=== PATIENT | male | born 1990 | race Caucasian/White ===

== ENCOUNTER 2016-03-11 14:27 | Emergency (ER) | payer OTHER ==
--- NOTE | 2016-03-11 15:57 | DIAGNOSTIC IMAGING REPORT ---
PROCEDURE: XR CHEST 2 VIEW INDICATION: SHORTNESS OF BREATH TECHNIQUE: PA and lateral views. COMPARISON: None. FINDINGS: Lungs are clear. Heart and mediastinum are normal. Thorax is normal. IMPRESSION: 1. Negative chest.
--- NOTE | 2016-03-11 16:15 | ED ORDER SUMMARY ---
..... Patient: JOE CASAS OrderSheet [facility] VisitID: [id number] [address] [place] [address] 25y, M Registration Date/Time: 03/11/2016 ORDER SHEET Weight: 77.1 kg Allergies: Codeine, Keflex, Triple antibiotic ointment GENERAL ORDERS: Chest 2V Urgent (15:02 03/11/2016 HBivens A.R.N.P.) (Ack 15:03 LNations ER Tech1) (15:10 LNations ER Tech1) MEDICATION ORDERS: Albuterol Neb w Atrovent 1 unit dose (NOW) (15:02 03/11/2016 HBivens A.R.N.P.) (15:56 RMcCarson) IV FLUIDS: ORDER SHEET NOTES: [Electronically signed by Maggy Pak R.N. (16:40 03/11/2016)] [Electronically signed by Indiana Guzman.R.N.P. (20:21 03/11/2016)] [Electronically locked/signed by Maggy Pak R.N. (16:40 03/11/2016)]
--- NOTE | 2016-03-11 16:15 | ED NURSING NOTES ---
Clinical Report - Nurses [facility] [address] [place] [address] 03/11/2016 14:30 Patient: JOE CASAS TRIAGE Triage time 14:42 Mar 11 2016. Acuity: LEVEL 3. 14:42 03/11/16. TENNILLE COMA SCORE: Hawkeye Coma Scale: 15- eyes open spontaneously (4); best verbal response- oriented x 4 (5); best motor response- obeys commands (6). --14:49 Maggy Pak R.N. 14:42 03/11/16. BP: 152/85. HR: 62. RR: 18. O2 saturation: 99%. Temp: 97.9 F. Pain level now: 0/10. --14:49 Maggy Pak R.N. Chief Complaint: (short of breath). --16:39 Maggy Pak R.N. Weight: 77.1 kg. Height/Length: 67 inches. BMI: 26.6. --14:42 Maggy Pka R.N. Medications Singulair Oral. --14:44 Maggy Pak R.N. Advair Diskus Inhalation. --14:44 Maggy Pak R.N. Albuterol Sulfate HFA Inhalation. --14:44 Maggy Pak R.N. Medication/allergy information source: the patient. --14:49 Maggy Pak R.N. Allergies Codeine. --14:45 Maggy Pak R.N. Keflex. --14:45 Maggy Pak R.N. Triple antibiotic ointment. --14:45 Maggy Pak R.N. History Arrived by private vehicle, and accompanied by family. This is a new problem. (7 days). ( feels tight, hurts to take in breath and exhaling. Cough started yesterday, productive for clear sputum.). He has had a cough and difficulty breathing. Treatment BACK LINE COOK: None. PAST MEDICAL HX: Has not received seasonal influenza immunization. SOCIAL HX: Never smoker. Occasional alcohol use. No drug use. No infectious disease exposure. ABUSE ASSESSMENT: No report of abuse. SELF HARM ASSESSMENT: A self harm assessment was performed. The patient answered "no" to the question "Have you recently felt down, depressed, or hopeless?", "Have you noticed less interest or pleasure in doing things?", "Do you have thoughts of harming or killing yourself?", "Are you here because you tried to hurt yourself?", "Have you ever tried to hurt yourself before today?", "Have you recently had thoughts about harming or killing others?" and "Do you have any dangerous items in your possession?". FALL RISK ASSESSMENT: Fall risk assessment completed. No fall risk identified. NUTRITIONAL RISK ASSESSMENT: The nutritional risk assessment revealed no deficiencies. FUNCTIONAL ASSESSMENT: Functional assessment: no impairments noted. LEARNING NEEDS ASSESSMENT: The learning needs assessment revealed no barriers. SKIN INTEGRITY ASSESSMENT: Skin integrity risk assessment completed. No skin integrity risk identified. --14:49 Maggy Pak R.N. PROBLEMS: Asthma. --14:45 Maggy Pak R.N. ADDITIONAL SURGERIES: Acl repair. Hypospadias Repair. --14:45 Maggy Pak R.N. Interventions ID band on patient. --14:49 Maggy Pak R.N. PHYSICAL ASSESSMENT Ambulatory to room. GENERAL / NEURO / PSYCH: Alert. Oriented X 4. Appears in no acute distress. HEENT: Pupils equal, round and reactive to light. Mucous membranes are pink. RESPIRATORY: Respirations not labored. Chest nontender. Breath sounds within normal limits. CVS: Pulses within normal limits. SKIN: Skin intact. Skin is warm and dry. --14:53 Maggy Pak R.N. NURSING PROGRESS NOTES 14:42 03/11/16. The initial plan of care for this patient includes an assessment with efforts to address impairment of the respiratory system. This plan of care was discussed with the patient. Pulse oximeter placed on patient; monitor alarms on. Two patient identifiers checked. Call light placed in reach. Bed placed in lowest position. Brakes of bed on. Patient ready for evaluation. --14:53 Maggy Pak R.N. 15:01 03/11/16. ( Peak flow 400,350,320). --15:01 Maggy Pak R.N. 15:56 03/11/2016 ALBUTEROL NEB W ATROVENT Neb TX Nebulizer 1 unit dose given. --15:56 Olive Turner 15:57 03/11/16. ( RT HERE TO GIVE TREATMENT). --15:57 Maggy Pak R.N. DISPOSITION / DISCHARGE 16:29 03/11/16. Departure time: 16:Mar 11 2016. Condition at departure: improved and stable. The goals identified in the patient's plan of care were met. No learning barriers present. Reviewed medication(s) side effects, precautions, dosing and course information. Prescription(s) given to the patient. The patient was discharged home and accompanied by family. He left the Emergency Department ambulatory and via private vehicle. Family member driving. --16:37 Maggy Pak R.N. 16:26 03/11/16. BP: 119/68. HR: 68. RR: 18. O2 saturation: 100%. Temp: 98 F. Pain level now: 0/10. --16:37 Maggy Pak R.N. Locked/Released at 03/11/2016 16:40 by Maggy Pak R.N.
--- NOTE | 2016-03-11 16:15 | ED ORDER SUMMARY ---
..... Patient: JOE CASAS OrderSheet [facility] VisitID: [id number] [address] [place] [address] 25y, M Registration Date/Time: 03/11/2016 ORDER SHEET Weight: 77.1 kg Allergies: Codeine, Keflex, Triple antibiotic ointment GENERAL ORDERS: Chest 2V Urgent (15:02 03/11/2016 HBivens A.R.N.P.) (Ack 15:03 LNations ER Tech1) (15:10 LNations ER Tech1) MEDICATION ORDERS: Albuterol Neb w Atrovent 1 unit dose (NOW) (15:02 03/11/2016 HBivens A.R.N.P.) (15:56 RMcCarson) IV FLUIDS: ORDER SHEET NOTES: [Electronically signed by Maggy Pak R.N. (16:40 03/11/2016)] [Electronically signed by Indiana Guzman.R.N.P. (20:21 03/11/2016)] [Electronically locked/signed by Maggy Pak R.N. (16:40 03/11/2016)]
--- NOTE | 2016-03-11 16:15 | ED CLINICAL REPORT ---
Clinical Report - Physicians/Mid Levels [facility] [address] [place] [address] 03/11/2016 14:30 Patient: JOE CASAS Time Seen: 14:52; initial patient contact, initial documentation, patient care assumed. Arrived- By private vehicle. Historian- patient. HISTORY OF PRESENT ILLNESS Chief Complaint: COUGH. This started about 1 weeks ago and is still present. The illness is described as moderate. The patient has had a cough and difficulty breathing. He has had scant amounts of clear sputum. No chest discomfort or pain, fever, muscle aches or sore throat. No nasal congestion or discharge, sinus pressure, sinus drainage or ear pain. (last used inhaler yesterday). Additional history - The patient has had contact with a sick friend and coworker. No recent travel. Similar symptoms previously: Frequently, as bad. ( says every year about this same time he gets bronchitis). Recent medical care: Not recently seen/assessed. REVIEW OF SYSTEMS No headache. All systems otherwise negative, except as recorded above. PAST HISTORY See nurses notes. PROBLEMS: Asthma. --14:45 Maggy Pak R.N. ADDITIONAL SURGERIES: Acl repair. Hypospadias Repair. --14:45 Maggy Pak R.N. SOCIAL HISTORY Never smoker. Occasional alcohol use. Not exposed to second-hand smoke at home. No drug use. No recent travel. Is a local resident. FAMILY HISTORY Negative. ADDITIONAL NOTES The nursing notes have been reviewed with agreement regarding the chief complaint, HPI, ROS, PMH and patient medications and allergies. PHYSICAL EXAM Vital Signs: 03/11/2016 14:42 BP: 152/85. HR: 62. RR: 18. O2 saturation: 99%. Temp: 97.9 F. Pain level now: 0/10. Have been reviewed as normal and appear to be correct. Appearance: Alert. No acute distress. Eyes: Pupils equal, round and reactive to light. Eyes normal inspection. ENT: Ears normal. Nose normal. Pharynx normal. Uvula midline. Neck: Normal inspection. Neck supple. CVS: Normal heart rate and rhythm. Heart sounds normal. Pulses normal. Respiratory: No respiratory distress. Breath sounds normal. Abdomen: Soft and nontender. No organomegaly. Back: Normal inspection. Skin: Skin warm and dry. Normal skin color. No rash. Normal skin turgor. Extremities: Extremities exhibit normal ROM. No lower extremity edema. Neuro: Oriented X 3. No motor deficit. No sensory deficit. LABS, X-RAYS, AND EKG Chest X-ray: Normal Chest X-Ray. (IMPRESSION: 1. Negative chest. Electronically Final signed by:Binh Dewey MD 03/11/2016 4:00:56 PM). The X-rays were interpreted by the radiologist and contemporaneously by me. PROGRESS AND PROCEDURES Course of Care: 1605. Resp even and unlabored, B breath sounds CTA, pt stated he felt much better. Patient counseled in person regarding the patient's stable condition, test results and diagnosis. 16:05. Differential Diagnosis: Other possible considerations: asthma, bronchitis, pneumonia, uri, flu. Above considerations are based on history and physical exam. Differential diagnosis was discussed with patient. Disposition: Discharged home in good and improved condition (16:15). Condition: good and stable. CLINICAL IMPRESSION Mild persistent and exercise induced asthma. No acute exacerbation, status asthmaticus, pneumonia, hypoxemia or acute respiratory failure. INSTRUCTIONS Do not work today, tomorrow. Warnings: GENERAL WARNINGS: Return or contact your physician immediately if your condition worsens or changes unexpectedly, if not improving as expected, or if other problems arise. Specifically return if problem worsens. Prescription Medications: Albuterol 0.083% Inhalation Solution: inhale 1 unit dose (3 mL) via nebulizer every 6 hours as needed for breathing problems. Dispense twenty-five (25) units. No refills. Prednisone 20 mg: take 3 orally every day for 5 days. Dispense fifteen (15). No refills. Follow-up: Follow up with your doctor in about three days as needed. Call for an appointment. Summary of care provided to patient. Understanding of the discharge instructions verbalized by patient. (Electronically signed by Indiana Guzman, A.R.N.P. 03/11/2016 20:21)
--- NOTE | 2016-03-11 20:22 | ED MAR SUMMARY ---
..... Medication Administration Record [facility] [address] [place] [address] Patient: JOE CASAS Visit ID: [id number] 25y, M Weight: 77.1 kg Height/Length: 67 in BMI: 26.6 ALLERGIES: Triple antibiotic ointment, Keflex, Codeine Given 15:56 03/11/2016 Olive Turner, Medication Administered: ALBUTEROL NEB W ATROVENT, Dose: 1 unit dose Nebulizer Neb TX. Medication Ordered: Albuterol Neb w Atrovent 1 unit dose (NOW).
--- NOTE | 2016-03-11 20:22 | ED MED RECONCILIATION SUMMARY ---
Patient: JOE CASAS Medication Reconciliation Report [facility] VisitID: [id number] [address] [place] [address] 25y, M Registration Date/Time: 03/11/2016 Weight: 77.1 kg Height/Length: 67 in. BMI: 26.6 ALLERGIES: Codeine, Keflex, Triple antibiotic ointment The patient's Home Medications are listed below: THE FOLLOWING MEDICATIONS NEED TO BE RECONCILED: Advair Diskus Inhalation Albuterol Sulfate HFA Inhalation Singulair Oral The source(s) of the original Home Medication information: patient The following Medications were given to the patient in the Emergency Department: ALBUTEROL NEB W ATROVENT Neb TX 1 unit dose, administered: 03/11/2016 3:56:00 PM The following Medications were prescribed to the patient: Albuterol 0.083% Inhalation Solution: inhale 1 unit dose (3 mL) via nebulizer every 6 hours as needed for breathing problems. Dispense twenty-five (25) units. No refills. -- Indiana Guzman, A.R.N.P. Prednisone 20 mg: take 3 orally every day for 5 days. Dispense fifteen (15). No refills. -- Indiana Guzman A.R.N.P.
--- NOTE | 2016-03-11 20:22 | ED MAR SUMMARY ---
..... Medication Administration Record [facility] [address] [place] [address] Patient: JOE CASAS Visit ID: [id number] 25y, M Weight: 77.1 kg Height/Length: 67 in BMI: 26.6 ALLERGIES: Triple antibiotic ointment, Keflex, Codeine Given 15:56 03/11/2016 Olive Turner, Medication Administered: ALBUTEROL NEB W ATROVENT, Dose: 1 unit dose Nebulizer Neb TX. Medication Ordered: Albuterol Neb w Atrovent 1 unit dose (NOW).
--- NOTE | 2016-03-11 20:22 | ED MED RECONCILIATION SUMMARY ---
Patient: JOE CASAS Medication Reconciliation Report [facility] VisitID: [id number] [address] [place] [address] 25y, M Registration Date/Time: 03/11/2016 Weight: 77.1 kg Height/Length: 67 in. BMI: 26.6 ALLERGIES: Codeine, Keflex, Triple antibiotic ointment The patient's Home Medications are listed below: THE FOLLOWING MEDICATIONS NEED TO BE RECONCILED: Advair Diskus Inhalation Albuterol Sulfate HFA Inhalation Singulair Oral The source(s) of the original Home Medication information: patient The following Medications were given to the patient in the Emergency Department: ALBUTEROL NEB W ATROVENT Neb TX 1 unit dose, administered: 03/11/2016 3:56:00 PM The following Medications were prescribed to the patient: Albuterol 0.083% Inhalation Solution: inhale 1 unit dose (3 mL) via nebulizer every 6 hours as needed for breathing problems. Dispense twenty-five (25) units. No refills. -- Indiana Guzman, A.R.N.P. Prednisone 20 mg: take 3 orally every day for 5 days. Dispense fifteen (15). No refills. -- Indiana Guzman A.R.N.P.
--- NOTE | 2016-03-11 20:22 | ED DISCHARGE INSTRUCTIONS ---
Patient: JOE CASAS General Instructions [facility] VisitID: [id number] [place] [address] 25y, M Registration Date/Time: 03/11/2016 Mild persistent and exercise induced asthma. No acute exacerbation, status asthmaticus, pneumonia, hypoxemia or acute respiratory failure. INSTRUCTIONS Do not work today, tomorrow. Warnings: GENERAL WARNINGS: Return or contact your physician immediately if your condition worsens or changes unexpectedly, if not improving as expected, or if other problems arise. Specifically return if problem worsens. Prescription Medications: Albuterol 0.083% Inhalation Solution: inhale 1 unit dose (3 mL) via nebulizer every 6 hours as needed for breathing problems. Dispense twenty-five (25) units. No refills. Prednisone 20 mg: take 3 orally every day for 5 days. Dispense fifteen (15). No refills. Follow-up: Follow up with your doctor in about three days as needed. Call for an appointment. Summary of care provided to patient. Understanding of the discharge instructions verbalized by patient. ADDITIONAL INFORMATION Asthma [Adult] Asthma is a disease where the small air passages within the lung go into spasm and restrict the flow of air. Inflammation and swelling of the airways cause further restriction. During an acute asthma attack, these factors cause difficulty breathing, wheezing, cough and chest tightness. An asthma attack can be triggered by many things. Common triggers include the common cold, bronchitis, pneumonia, irritants such as smoke or pullutants in the air, emotional upset and heavy exercise. Inmany adults with asthma, allergies todust, mold, pollen and animal dander can cause an asthma attack. Skipping doses of daily asthma medicine can also bring on an asthma attack. Asthma can be controlled with proper medicines and decreased exposure to known allergens. Home Care: Take prescribed medicine exactly at the times advised. If you have a hand-held inhaler or aerosol breathing medicine, do not use it more than once every four hours, unless told to do so. (If you need this medicine more than every four hours, you may need to return to the Emergency Room.) If prescribed an antibiotic or prednisone, take all of the medicine even if you are feeling better after a few days. Do not smoke. Avoid being exposed to the smoke of others. Some persons with asthma have worsening of their symptoms when they take aspirin and non-steroidal medicines like ibuprofen (Motrin, Advil) and naproxen (Aleve, Naprosyn). Talk to your doctor if you think this may apply to you. Acetaminophen (Tylenol)should be safe to use. Follow Up with your doctor, or as advised by our staff. Always bring all of your current medicines with you for your doctor to see. If you do not already have one, talk to your doctor about developing a personalized "Asthma Action Plan." [NOTE: A pneumococcal vaccine and yearly flu shot (every fall) are recommended. Ask your doctor about this.] Get Prompt Medical Attention if any of the following occur: Increased wheezing or shortness of breath Need to use your inhalers more often than usual without relief Fever of 100.4F (38C) or higher, or as directed by your healthcare provider Coughing up lots of dark-colored or bloody sputum (mucus) Chest pain with each breath You do not start to improve within 24 hours Call 911 If Any Of The Following Occur : Trouble walking or talking because of shortness of breath If you use a peak flow meter andyou are still in the red zone (less than 50 percent) 15 minutes after using inhaler medication Lips or fingernails turning ruelas or blue Albuterol Sulfate Nebulizer solution What is this medicine? ALBUTEROL (al BYOO ter ole) is a bronchodilator. It helps to open up the airways in your lungs to make it easier to breathe. This medicine is used to treat and to prevent bronchospasm. How should I use this medicine? This medicine is used in a nebulizer. Nebulizers make a liquid into an aerosol that you breathe in through your mouth or your mouth and nose into your lungs. You will be taught how to use your nebulizer. Follow the directions on your prescription label. Take your medicine at regular intervals. Do not use more often than directed. Talk to your histologic technician regarding the use of this medicine in children. Special care may be needed. What side effects may I notice from receiving this medicine? Side effects that you should report to your doctor or health rn critical care as soon as possible: allergic reactions like skin rash, itching or hives, swelling of the face, lips, or tongue breathing problems chest pain feeling faint or lightheaded, falls high blood pressure irregular heartbeat fever muscle cramps or weakness pain, tingling, numbness in the hands or feet vomiting Side effects that usually do not require medical attention (report to your doctor or health rn critical care if they continue or are bothersome): cough difficulty sleeping headache nervousness, trembling stomach upset stuffy or runny nose throat irritation unusual taste What may interact with this medicine? anti-infectives like chloroquine and pentamidine caffeine cisapride diuretics medicines for colds medicines for depression or emotional or psychotic conditions medicines for weight loss including some herbal products methadone some antibiotics like clarithromycin, erythromycin, levofloxacin, and linezolid some heart medicines steroid hormones like dexamethasone, cortisone, hydrocortisone theophylline thyroid hormones What if I miss a dose? If you miss a dose, use it as soon as you can. If it is almost time for your next dose, use only that dose. Do not use double or extra doses. Where should I keep my medicine? Keep out of the reach of children. Store between 2 and 25 degrees C (36 and 77 degrees F). Do not freeze. Protect from light. Throw away any unused medicine after the expiration date. Most products are kept in the foil package until time of use. Some products can be used up to 1 week after they are removed from the foil pouch. Check the instructions that come with your medicine. What should I tell my health care provider before I take this medicine? They need to know if you have any of the following conditions: diabetes heart disease or irregular heartbeat high blood pressure pheochromocytoma seizures thyroid disease an unusual or allergic reaction to albuterol, levalbuterol, sulfites, other medicines, foods, dyes, or preservatives or trying to get breast-feeding What should I watch for while using this medicine? Tell your doctor or health rn critical care if your symptoms do not improve. Do not use extra albuterol. Call your doctor right away if your asthma or bronchitis gets worse while you are using this medicine. If your mouth gets dry try chewing sugarless gum or sucking hard candy. Drink water as directed. Prednisone Oral tablet What is this medicine? PREDNISONE (PRED ni sone) is a corticosteroid. It is commonly used to treat inflammation of the skin, joints, lungs, and other organs. Common conditions treated include asthma, allergies, and arthritis. It is also used for other conditions, such as blood disorders and diseases of the adrenal glands. How should I use this medicine? Take this medicine by mouth with a glass of water. Follow the directions on the prescription label. Take this medicine with food. If you are taking this medicine once a day, take it in the morning. Do not take more medicine than you are told to take. Do not suddenly stop taking your medicine because you may develop a severe reaction. Your doctor will tell you how much medicine to take. If your doctor wants you to stop the medicine, the dose may be slowly lowered over time to avoid any side effects. Talk to your histologic technician regarding the use of this medicine in children. Special care may be needed. What side effects may I notice from receiving this medicine? Side effects that you should report to your doctor or health rn critical care as soon as possible: allergic reactions like skin rash, itching or hives, swelling of the face, lips, or tongue changes in emotions or moods changes in vision depressed mood eye pain fever or chills, cough, sore throat, pain or difficulty passing urine increased thirst swelling of ankles, feet Side effects that usually do not require medical attention (report to your doctor or health rn critical care if they continue or are bothersome): confusion, excitement, restlessness headache nausea, vomiting skin problems, acne, thin and shiny skin trouble sleeping weight gain What may interact with this medicine? Do not take this medicine with any of the following medications: metyrapone mifepristone This medicine may also interact with the following medications: aminoglutethimide amphotericin B aspirin and aspirin-like medicines barbiturates certain medicines for diabetes, like glipizide or glyburide cholestyramine cholinesterase inhibitors cyclosporine digoxin diuretics ephedrine female hormones, like estrogens and control pills isoniazid ketoconazole NSAIDS, medicines for pain and inflammation, like ibuprofen or naproxen phenytoin rifampin toxoids vaccines warfarin What if I miss a dose? If you miss a dose, take it as soon as you can. If it is almost time for your next dose, talk to your doctor or health rn critical care. You may need to miss a dose or take an extra dose. Do not take double or extra doses without advice. Where should I keep my medicine? Keep out of the reach of children. Store at room temperature between 15 and 30 degrees C (59 and 86 degrees F). Protect from light. Keep container tightly closed. Throw away any unused medicine after the expiration date. What should I tell my health care provider before I take this medicine? They need to know if you have any of these conditions: Oglesby's syndrome diabetes glaucoma heart disease high blood pressure infection (especially a virus infection such as chickenpox, cold sores, or herpes) kidney disease liver disease mental illness myasthenia gravis osteoporosis seizures stomach or intestine problems thyroid disease an unusual or allergic reaction to lactose, prednisone, other medicines, foods, dyes, or preservatives or trying to get breast-feeding What should I watch for while using this medicine? Visit your doctor or health rn critical care for regular checks on your progress. If you are taking this medicine over a prolonged period, carry an identification card with your name and address, the type and dose of your medicine, and your doctor's name and address. This medicine may increase your risk of getting an infection. Tell your doctor or health rn critical care if you are around anyone with measles or chickenpox, or if you develop sores or blisters that do not heal properly. If you are going to have surgery, tell your doctor or health rn critical care that you have taken this medicine within the last twelve months. Ask your doctor or health rn critical care about your diet. You may need to lower the amount of salt you eat. This medicine may affect blood sugar levels. If you have diabetes, check with your doctor or health rn critical care before you change your diet or the dose of your diabetic medicine. You have been given the following additional information: Asthma, Acute (Adult) Albuterol Sulfate Nebulizer solution Prednisone Oral tablet Do not work today, tomorrow. (Electronically signed by Indiana Guzman A.R.N.P. 03/11/2016 20:21)
--- NOTE | 2016-03-11 20:22 | ED DISCHARGE INSTRUCTIONS ---
Patient: JOE CASAS General Instructions [facility] VisitID: [id number] [place] [address] 25y, M Registration Date/Time: 03/11/2016 Mild persistent and exercise induced asthma. No acute exacerbation, status asthmaticus, pneumonia, hypoxemia or acute respiratory failure. INSTRUCTIONS Do not work today, tomorrow. Warnings: GENERAL WARNINGS: Return or contact your physician immediately if your condition worsens or changes unexpectedly, if not improving as expected, or if other problems arise. Specifically return if problem worsens. Prescription Medications: Albuterol 0.083% Inhalation Solution: inhale 1 unit dose (3 mL) via nebulizer every 6 hours as needed for breathing problems. Dispense twenty-five (25) units. No refills. Prednisone 20 mg: take 3 orally every day for 5 days. Dispense fifteen (15). No refills. Follow-up: Follow up with your doctor in about three days as needed. Call for an appointment. Summary of care provided to patient. Understanding of the discharge instructions verbalized by patient. ADDITIONAL INFORMATION Asthma [Adult] Asthma is a disease where the small air passages within the lung go into spasm and restrict the flow of air. Inflammation and swelling of the airways cause further restriction. During an acute asthma attack, these factors cause difficulty breathing, wheezing, cough and chest tightness. An asthma attack can be triggered by many things. Common triggers include the common cold, bronchitis, pneumonia, irritants such as smoke or pullutants in the air, emotional upset and heavy exercise. Inmany adults with asthma, allergies todust, mold, pollen and animal dander can cause an asthma attack. Skipping doses of daily asthma medicine can also bring on an asthma attack. Asthma can be controlled with proper medicines and decreased exposure to known allergens. Home Care: Take prescribed medicine exactly at the times advised. If you have a hand-held inhaler or aerosol breathing medicine, do not use it more than once every four hours, unless told to do so. (If you need this medicine more than every four hours, you may need to return to the Emergency Room.) If prescribed an antibiotic or prednisone, take all of the medicine even if you are feeling better after a few days. Do not smoke. Avoid being exposed to the smoke of others. Some persons with asthma have worsening of their symptoms when they take aspirin and non-steroidal medicines like ibuprofen (Motrin, Advil) and naproxen (Aleve, Naprosyn). Talk to your doctor if you think this may apply to you. Acetaminophen (Tylenol)should be safe to use. Follow Up with your doctor, or as advised by our staff. Always bring all of your current medicines with you for your doctor to see. If you do not already have one, talk to your doctor about developing a personalized "Asthma Action Plan." [NOTE: A pneumococcal vaccine and yearly flu shot (every fall) are recommended. Ask your doctor about this.] Get Prompt Medical Attention if any of the following occur: Increased wheezing or shortness of breath Need to use your inhalers more often than usual without relief Fever of 100.4F (38C) or higher, or as directed by your healthcare provider Coughing up lots of dark-colored or bloody sputum (mucus) Chest pain with each breath You do not start to improve within 24 hours Call 911 If Any Of The Following Occur : Trouble walking or talking because of shortness of breath If you use a peak flow meter andyou are still in the red zone (less than 50 percent) 15 minutes after using inhaler medication Lips or fingernails turning ruelas or blue Albuterol Sulfate Nebulizer solution What is this medicine? ALBUTEROL (al BYOO ter ole) is a bronchodilator. It helps to open up the airways in your lungs to make it easier to breathe. This medicine is used to treat and to prevent bronchospasm. How should I use this medicine? This medicine is used in a nebulizer. Nebulizers make a liquid into an aerosol that you breathe in through your mouth or your mouth and nose into your lungs. You will be taught how to use your nebulizer. Follow the directions on your prescription label. Take your medicine at regular intervals. Do not use more often than directed. Talk to your hunting and fishing guide regarding the use of this medicine in children. Special care may be needed. What side effects may I notice from receiving this medicine? Side effects that you should report to your doctor or health coronary care unit nurse as soon as possible: allergic reactions like skin rash, itching or hives, swelling of the face, lips, or tongue breathing problems chest pain feeling faint or lightheaded, falls high blood pressure irregular heartbeat fever muscle cramps or weakness pain, tingling, numbness in the hands or feet vomiting Side effects that usually do not require medical attention (report to your doctor or health coronary care unit nurse if they continue or are bothersome): cough difficulty sleeping headache nervousness, trembling stomach upset stuffy or runny nose throat irritation unusual taste What may interact with this medicine? anti-infectives like chloroquine and pentamidine caffeine cisapride diuretics medicines for colds medicines for depression or emotional or psychotic conditions medicines for weight loss including some herbal products methadone some antibiotics like clarithromycin, erythromycin, levofloxacin, and linezolid some heart medicines steroid hormones like dexamethasone, cortisone, hydrocortisone theophylline thyroid hormones What if I miss a dose? If you miss a dose, use it as soon as you can. If it is almost time for your next dose, use only that dose. Do not use double or extra doses. Where should I keep my medicine? Keep out of the reach of children. Store between 2 and 25 degrees C (36 and 77 degrees F). Do not freeze. Protect from light. Throw away any unused medicine after the expiration date. Most products are kept in the foil package until time of use. Some products can be used up to 1 week after they are removed from the foil pouch. Check the instructions that come with your medicine. What should I tell my health care provider before I take this medicine? They need to know if you have any of the following conditions: diabetes heart disease or irregular heartbeat high blood pressure pheochromocytoma seizures thyroid disease an unusual or allergic reaction to albuterol, levalbuterol, sulfites, other medicines, foods, dyes, or preservatives or trying to get breast-feeding What should I watch for while using this medicine? Tell your doctor or health coronary care unit nurse if your symptoms do not improve. Do not use extra albuterol. Call your doctor right away if your asthma or bronchitis gets worse while you are using this medicine. If your mouth gets dry try chewing sugarless gum or sucking hard candy. Drink water as directed. Prednisone Oral tablet What is this medicine? PREDNISONE (PRED ni sone) is a corticosteroid. It is commonly used to treat inflammation of the skin, joints, lungs, and other organs. Common conditions treated include asthma, allergies, and arthritis. It is also used for other conditions, such as blood disorders and diseases of the adrenal glands. How should I use this medicine? Take this medicine by mouth with a glass of water. Follow the directions on the prescription label. Take this medicine with food. If you are taking this medicine once a day, take it in the morning. Do not take more medicine than you are told to take. Do not suddenly stop taking your medicine because you may develop a severe reaction. Your doctor will tell you how much medicine to take. If your doctor wants you to stop the medicine, the dose may be slowly lowered over time to avoid any side effects. Talk to your hunting and fishing guide regarding the use of this medicine in children. Special care may be needed. What side effects may I notice from receiving this medicine? Side effects that you should report to your doctor or health coronary care unit nurse as soon as possible: allergic reactions like skin rash, itching or hives, swelling of the face, lips, or tongue changes in emotions or moods changes in vision depressed mood eye pain fever or chills, cough, sore throat, pain or difficulty passing urine increased thirst swelling of ankles, feet Side effects that usually do not require medical attention (report to your doctor or health coronary care unit nurse if they continue or are bothersome): confusion, excitement, restlessness headache nausea, vomiting skin problems, acne, thin and shiny skin trouble sleeping weight gain What may interact with this medicine? Do not take this medicine with any of the following medications: metyrapone mifepristone This medicine may also interact with the following medications: aminoglutethimide amphotericin B aspirin and aspirin-like medicines barbiturates certain medicines for diabetes, like glipizide or glyburide cholestyramine cholinesterase inhibitors cyclosporine digoxin diuretics ephedrine female hormones, like estrogens and control pills isoniazid ketoconazole NSAIDS, medicines for pain and inflammation, like ibuprofen or naproxen phenytoin rifampin toxoids vaccines warfarin What if I miss a dose? If you miss a dose, take it as soon as you can. If it is almost time for your next dose, talk to your doctor or health coronary care unit nurse. You may need to miss a dose or take an extra dose. Do not take double or extra doses without advice. Where should I keep my medicine? Keep out of the reach of children. Store at room temperature between 15 and 30 degrees C (59 and 86 degrees F). Protect from light. Keep container tightly closed. Throw away any unused medicine after the expiration date. What should I tell my health care provider before I take this medicine? They need to know if you have any of these conditions: Gloucester's syndrome diabetes glaucoma heart disease high blood pressure infection (especially a virus infection such as chickenpox, cold sores, or herpes) kidney disease liver disease mental illness myasthenia gravis osteoporosis seizures stomach or intestine problems thyroid disease an unusual or allergic reaction to lactose, prednisone, other medicines, foods, dyes, or preservatives or trying to get breast-feeding What should I watch for while using this medicine? Visit your doctor or health coronary care unit nurse for regular checks on your progress. If you are taking this medicine over a prolonged period, carry an identification card with your name and address, the type and dose of your medicine, and your doctor's name and address. This medicine may increase your risk of getting an infection. Tell your doctor or health coronary care unit nurse if you are around anyone with measles or chickenpox, or if you develop sores or blisters that do not heal properly. If you are going to have surgery, tell your doctor or health coronary care unit nurse that you have taken this medicine within the last twelve months. Ask your doctor or health coronary care unit nurse about your diet. You may need to lower the amount of salt you eat. This medicine may affect blood sugar levels. If you have diabetes, check with your doctor or health coronary care unit nurse before you change your diet or the dose of your diabetic medicine. You have been given the following additional information: Asthma, Acute (Adult) Albuterol Sulfate Nebulizer solution Prednisone Oral tablet Do not work today, tomorrow. (Electronically signed by Indiana Guzman A.R.N.P. 03/11/2016 20:21)
== END 2016-03-11 16:29 | disposition home or self-care (01) ==
LOC: ED SRH 14:27
DX: J45.30 Mild persistent asthma, uncomplicated (principal); Z79.899 Other long term (current) drug therapy; Z88.5 Allergy status to narcotic agent; Z88.1 Allergy status to other antibiotic agents